=== PATIENT | female | born 1945 | race Caucasian/White ===

== ENCOUNTER → 2021-02-24 01:46 | Outpatient (CLI) | payer MEDICARE, SELFPAY ==
--- NOTE | 2021-02-24 | DI.NM_ITS ---
APPROVED REPORT Exam: Exercise Treadmill Patient Location: Out-Patient Room/Bed: Stress Nurse: Chelsey Scott RN Ordering Provider:KVNG ASHLEY, Contact Number: [phone] BMI: 36.84 Baseline Rhythm: Sinus Rhythm Indications: Other form dyspnea Medical History Medical History: Hypertension, hyperlipidemia, prediabetes Cardiac Medications: Losartan, omeprazole Allergies: Zoloft, gabapentin Cardiac Risk Factors: Hypertension, hyperlipidemia, prediabetes Previous Cardiac Procedures: None Pretest Chest Pain Characteristics: None Exercise History: Sedentary Physical Disabilities: None Lung Sounds: Clear to auscultation Heart Sounds: Regular Stress Test Details Test: Exercise stress testing was performed using a Maximiliano protocol. Nuclear Acquisition: Rest Tc-99m/Stress Tc-99m 1 day Rest Isotope: Tc-99m Sestamibi. Dose: 9.8 Date: 02/24/2021 Injection Time: 0820 Stress Isotope: Tc-99m Sestamibi. Dose: 32.0 Date: 02/24/2021 Injection Time: 1015 HR Resting HR Supine: 62 bpm Max Heart Rate (APMHR): 144.788004 bpm Resting HR Standin bpm Target HR (85% APMHR): 122.794291 bpm Max HR Achieved: 145 bpm % of APMHR: 100.69 Recovery HR: 79 bpm HR response to stress: Normal HR response to stress BP Resting BP Supine: 160/96 mmHg Resting BP Standin/92 mmHg Max BP: 184/88 mmHg Recovery BP: 156/82 mmHg BP response to stress: Normal blood pressure response to stress. ECG Resting ECG: Sinus Rhythm Ectopy: Rare PVC Stress ECG: Sinus Tachycardia ST Change: No significant ST segment changes noted Arrhythmia: Frequent PACs Recovery ECG: Sinus Rhythm Recovery ST Change: No significant ST segment changes noted Recovery Arrhythmia: Occasional PACs and PVCs Clinical Reason for Termination: Fatigue Stress Symptoms: General Fatigue, Dyspnea Exercise duration: 5 min58 sec Highest Stage Reached: Stage 2: 2.5 mph at 12% grade. Exercise capacity: 7.05 METs Gaines Treadmill Score: 5.6 Rate Pressure Product: [id number] Stress ECG Conclusion 1. The resting electrocardiogram was within normal limits 2. Patient exercised on the Maximiliano protocol and completed a workload of 7.05 METS, stopping due to fat igue and dyspnea 3. Normal heart rate and blood pressure response to exercise. The patient achieved 100% of predicted heart rate for age 4. Electrocardiographically the test was negative for myocardial ischemia 5. Occasional atrial and ventricular ectopics were noted Gaines Treadmill Score is 5.6 which is Low risk. Stress Test Summary STAGE Time (mins) Speed (mph) Grade (%) HR BP SYMPTOMS METS Supine 62 160/96 Standing 76 158/92 SpO2 98% 1 3 1.7 10 118 178/90 SpO2 94% 4.6 2 6 2.5 12 140 Mild SOB, SpO2 96% 7 1 min recovery 112 184/88 SOB resolved, SpO2 98% 3 min recovery 82 178/82 SpO2 98% 6 min recovery 79 156/82 SpO2 98% MPI Conclusion Normal myocardial perfusion without evidence of myocardial ischemia or prior infarction EF 55%, normal wall motion Radiologist Interpretation Radiologist Interpretation by: David Seth MD Interpretation Date/Time: 02/24/2021 16:59:25
== END ==
PROVIDERS: PCP Family Medicine; Visit Provider Family Medicine
DX: R06.09 Other forms of dyspnea (principal); I10 Essential (primary) hypertension; E78.5 Hyperlipidemia, unspecified; R73.03 Prediabetes; I49.1 Atrial premature depolarization; I49.3 Ventricular premature depolarization
CPT/HCPCS: 78452; 93016; 93018; 93017